=== PATIENT | female | born 2000 | race Caucasian/White ===

== ENCOUNTER 2023-07-30 20:08 | Emergency (ER) | payer BC ==
[2023-07-30] MEDS: Ibuprofen 800 MG Tab PO ONE (21:55)
== END 2023-07-30 22:05 | disposition home or self-care (01) ==
LOC: DL.ED 20:08
DX: S06.0X0A Concussion without loss of consciousness, initial encounter (principal); Z88.0 Allergy status to penicillin; Z79.899 Other long term (current) drug therapy; W01.198A Fall on same level from slipping, tripping and stumbling with subsequent striking against other object, initial encounter; Y93.89 Activity, other specified
CPT/HCPCS: 70450; 81025; 99282; 99284; A9270